=== PATIENT | male | born 1975 | race Asian ===

== ENCOUNTER 2023-12-13 11:16 | Day surgery (SDC) | payer OTHER ==
[~2023-12-13] VITALS: Ht 170.2 cm; Wt 74.8 kg
[2023-12-13] MEDS ORDERED: fentaNYL citrate 0.05 MG/ML VIAL ONE (13:46)
[2023-12-13] MEDS ORDERED: LIDOCAINE 2% 100 MG/5 ML UJET TP ONE (13:46)
[2023-12-13] MEDS: fentaNYL citrate 0.05 MG/ML VIAL IVP ONE (13:55)
== END 2023-12-13 15:08 | disposition home or self-care (01) ==
LOC: MDS 11:16 → MMU 11:17 → MDS 15:08
PROVIDERS: ATTEND Internal Medicine Gastroenterology
DX: Z12.11 Encounter for screening for malignant neoplasm of colon (principal)
CPT/HCPCS: 45378; 82948; J3010